=== PATIENT | male | born 1965 | race Hispanic/Latino ===

== ENCOUNTER 2021-04-15 12:16 | Inpatient (IN) | payer OTHER ==
[2021-04-15] VITALS (24 sets, daily range): BP systolic 82–129; BP diastolic 48–81
[~2021-04-15] VITALS: Ht 157.5 cm; Wt 93.4 kg
[2021-04-15] MEDS ORDERED: NICARDIPINE 25MG INJ IV ONE (12:24)
[2021-04-15] MEDS ORDERED: IOHEXOL-350 50ML VIAL IV ONE (12:24)
[2021-04-15] MEDS ORDERED: HEPARIN 10,000 UNIT/10ML (1,000 UNIT/ML) VIAL ONE ×2 (12:24→13:37)
[2021-04-15] MEDS ORDERED: NITROGLYCERIN 50MG VIAL IV ONE (12:24)
[2021-04-15] MEDS ORDERED: IOHEXOL 350 MG/ML 100ML INFUS..BTL IV ONE ×2 (12:24→13:13)
[2021-04-15] MEDS ORDERED: LIDOCAINE HCL 400MG/20ML VIAL ONE (12:25)
[2021-04-15] MEDS ORDERED: MEPERIDINE-PF 25 MG/ML SYG ONE (12:39)
[2021-04-15] MEDS ORDERED: BIVALIRUDIN 250 MG/VIAL IV ONE (12:45)
[2021-04-15] MEDS ORDERED: CLOPIDOGREL 300MG TAB ONE (12:54)
[2021-04-15] MEDS ORDERED: EPTIFIBATIDE 2 MG/ML 10 ML VIAL IVP ONE ×2 (12:54→13:01)
[2021-04-15] MEDS ORDERED: EPTIFIBATIDE 75MG/100ML BOTTLE 100 ML IV ONE (12:56)
[2021-04-15] MEDS ORDERED: ENALAPRILAT DIHYDRATE 1.25 MG/ML 2ML VIAL IVP ONE (14:18)
[2021-04-15] MEDS ORDERED: ACETAMINOPHEN WITH CODEINE 1 TAB TAB PO PRN ×2 (15:00)
[2021-04-15] MEDS ORDERED: PHARMACY COMMUNICATION MISC SCH (15:30)
[2021-04-16] VITALS (23 sets, daily range): BP systolic 94–138; BP diastolic 46–82
[2021-04-16 04:31] LABS: HEMATOCRIT 32.6 % (42-54); MEAN CORPUSCULAR HEMOGLOBIN 30.7 pg (27.0-33.0); MEAN CORPUSCULAR HGB CONC 36.8 g/dL (32.0-36.0); MEAN CORPUSCULAR VOLUME 83.4 fL (79-99); PLATELET COUNT (AUTO) 286 K/uL (130-400); RED BLOOD CELL COUNT(AUTO) 3.91 MIL/uL (4.50-6.20); RED CELL DISTRIBUTION WIDTH 12.3 % (11.0-15.5); WHITE BLOOD COUNT (AUTO) 11.1 K/uL (4.8-10.8)
[2021-04-16 04:53] LABS: CREATININE 1.1 mg/dL (0.5-1.5)
[2021-04-16 05:08] LABS: POTASSIUM 2.9 mmol/L (3.5-5.1)
[2021-04-16] MEDS: CLOPIDOGREL 75MG TAB PO SCH (08:30)
[2021-04-16] MEDS: ASPIRIN 81MG CHEW TAB PO SCH (08:30)
[2021-04-16] MEDS: KCL 20 MEQ ERTAB PO PRN ×4 (09:22→16:11)
[2021-04-16 09:29] LABS: HEMOGLOBIN A1C 8.2 % (4.0-6.0)
[2021-04-16] MEDS ORDERED: POTASSIUM CHLORIDE 20MEQ/100ML 100 ML IV PRN (09:30)
[2021-04-16] MEDS ORDERED: POTASSIUM CHLORIDE 10% ELIXIR 20 MEQ/15 ML UDCUP PO PRN (09:30)
[2021-04-16 09:38] LABS: MAGNESIUM 1.7 mg/dL (1.80-2.40); THYROID STIMULATING HORMONE 3.52 uIU/mL (0.36-3.74)
[2021-04-16] MEDS: MAGNESIUM 2GM PREMIX 50ML 50 ML IV PRN (10:19)
[2021-04-16] MEDS: INSULIN HUMULIN R 100 UNIT/ML 3ML SQ SCH ×3 (11:04→20:33)
[2021-04-16 14:54] LABS: CREATININE 1.3 mg/dL (0.5-1.5); MAGNESIUM 2.1 mg/dL (1.80-2.40); POTASSIUM 3.5 mmol/L (3.5-5.1)
[2021-04-16] MEDS ORDERED: METOPROLOL TARTRATE 25 MG TAB PO ONE (17:30)
[2021-04-16] MEDS: ATORVASTATIN 40 MG TABLET PO SCH (20:30)
[2021-04-17 03:55] LABS: CREATININE 1.1 mg/dL (0.5-1.5); MAGNESIUM 1.8 mg/dL (1.80-2.40); POTASSIUM 3.4 mmol/L (3.5-5.1)
[2021-04-17 04:00] VITALS: BP 114/77
[2021-04-17 05:50] LABS: BASOPHILS % (AUTO) 0.7 % (0.0-5.0); EOSINOPHILS % (AUTO) 3.1 % (0.0-8.0); HEMATOCRIT 32.9 % (42-54); LYMPHOCYTES % (AUTO) 27.9 % (21.0-51.0); MEAN CORPUSCULAR HEMOGLOBIN 30.6 pg (27.0-33.0); MEAN CORPUSCULAR HGB CONC 35.9 g/dL (32.0-36.0); MEAN CORPUSCULAR VOLUME 85.2 fL (79-99); MONOCYTES % (AUTO) 9.9 % (3.0-13.0); NEUTROPHILS % (AUTO) 57.9 % (40.0-77.0); PLATELET COUNT (AUTO) 268 K/uL (130-400); RED BLOOD CELL COUNT(AUTO) 3.86 MIL/uL (4.50-6.20); RED CELL DISTRIBUTION WIDTH 12.5 % (11.0-15.5); WHITE BLOOD COUNT (AUTO) 9.8 K/uL (4.8-10.8)
[2021-04-17] MEDS: INSULIN HUMULIN R 100 UNIT/ML 3ML SQ SCH ×4 (06:32→20:46)
[2021-04-17] MEDS: KCL 20 MEQ ERTAB PO PRN ×2 (06:36→08:20)
[2021-04-17 07:41] VITALS: BP 127/85
[2021-04-17] MEDS: METOPROLOL TARTRATE 25 MG TAB PO SCH ×2 (08:20→20:37)
[2021-04-17] MEDS: CLOPIDOGREL 75MG TAB PO SCH (08:20)
[2021-04-17] MEDS: MAGNESIUM 2GM PREMIX 50ML 50 ML IV PRN (08:21)
[2021-04-17] MEDS: ASPIRIN 81MG CHEW TAB PO SCH (08:21)
[2021-04-17] MEDS: LISINOPRIL 2.5 MG TABLET PO SCH (08:27)
[2021-04-17] MEDS ORDERED: FUROSEMIDE 40MG VIAL IV SCH (08:30)
[2021-04-17 11:12] VITALS: BP 97/73
[2021-04-17] MEDS: FOLIC ACID 1 MG TABLET PO SCH (11:34)
[2021-04-17] MEDS: THIAMINE HCL 100 MG TABLET PO SCH (11:34)
[2021-04-17] MEDS: KCL 20 MEQ ERTAB PO SCH (15:14)
[2021-04-17] MEDS: FUROSEMIDE 40MG VIAL IV SCH (15:14)
[2021-04-17 15:38] VITALS: BP 102/68
[2021-04-17 19:28] VITALS: BP 115/75
[2021-04-17 20:05] VITALS: BP 156/75
[2021-04-17] MEDS: ATORVASTATIN 40 MG TABLET PO SCH (20:37)
[2021-04-18] VITALS: BP 112/74
[2021-04-18 03:46] VITALS: BP 146/76
[2021-04-18 04:02] LABS: CREATININE 1.1 mg/dL (0.5-1.5); POTASSIUM 3.3 mmol/L (3.5-5.1)
[2021-04-18] MEDS: KCL 20 MEQ ERTAB PO PRN ×2 (06:33→08:54)
[2021-04-18] MEDS: INSULIN HUMULIN R 100 UNIT/ML 3ML SQ SCH ×4 (07:18→21:10)
[2021-04-18 08:00] VITALS: BP 118/81
[2021-04-18] MEDS: FOLIC ACID 1 MG TABLET PO SCH (08:56)
[2021-04-18] MEDS: LISINOPRIL 2.5 MG TABLET PO SCH (08:56)
[2021-04-18] MEDS: ASPIRIN 81MG CHEW TAB PO SCH (08:56)
[2021-04-18] MEDS: CLOPIDOGREL 75MG TAB PO SCH (08:56)
[2021-04-18] MEDS: METOPROLOL TARTRATE 25 MG TAB PO SCH ×2 (08:56→21:08)
[2021-04-18] MEDS: KCL 20 MEQ ERTAB PO SCH ×3 (09:00→15:26)
[2021-04-18] MEDS: FUROSEMIDE 40MG VIAL IV SCH ×3 (10:37→15:26)
[2021-04-18] MEDS: THIAMINE HCL 100 MG TABLET PO SCH (10:37)
[2021-04-18 12:00] VITALS: BP 133/66
[2021-04-18] MEDS ORDERED: LOSA25TA41 PO (15:06)
[2021-04-18] MEDS ORDERED: METF-444 PO (15:06)
[2021-04-18 16:00] VITALS: BP 115/74
[2021-04-18 20:15] VITALS: BP 123/73
[2021-04-18] MEDS: ATORVASTATIN 40 MG TABLET PO SCH (21:08)
[2021-04-18] MEDS: INSULIN GLARGINE 100 UNITS/ML 10 ML VIAL SQ SCH (21:09)
[2021-04-19] VITALS (7 sets, daily range): BP systolic 101–134; BP diastolic 66–80
[2021-04-19 04:06] LABS: CREATININE 1.1 mg/dL (0.5-1.5); POTASSIUM 3.6 mmol/L (3.5-5.1)
[2021-04-19] MEDS: KCL 20 MEQ ERTAB PO PRN ×2 (04:38→06:10)
[2021-04-19] MEDS: INSULIN HUMULIN R 100 UNIT/ML 3ML SQ SCH ×4 (06:11→21:16)
[2021-04-19] MEDS: LISINOPRIL 2.5 MG TABLET PO SCH (08:07)
[2021-04-19] MEDS: ASPIRIN 81MG CHEW TAB PO SCH (08:07)
[2021-04-19] MEDS: METOPROLOL TARTRATE 25 MG TAB PO SCH ×2 (08:07→21:13)
[2021-04-19] MEDS: FOLIC ACID 1 MG TABLET PO SCH (08:08)
[2021-04-19] MEDS: THIAMINE HCL 100 MG TABLET PO SCH (08:08)
[2021-04-19] MEDS: CLOPIDOGREL 75MG TAB PO SCH (08:08)
[2021-04-19] MEDS: FUROSEMIDE 40 MG TABLET PO SCH (09:05)
[2021-04-19] MEDS: KCL 20 MEQ ERTAB PO SCH (09:05)
[2021-04-19] MEDS ORDERED: FUROSEMIDE 40 MG TABLET PO SCH (16:00)
[2021-04-19] MEDS ORDERED: KCL 20 MEQ ERTAB PO SCH (16:00)
[2021-04-19] MEDS: ATORVASTATIN 40 MG TABLET PO SCH (21:13)
[2021-04-19] MEDS: INSULIN GLARGINE 100 UNITS/ML 10 ML VIAL SQ SCH (21:17)
[2021-04-20 03:48] VITALS: BP 112/78
[2021-04-20 06:26] LABS: BASOPHILS % (AUTO) 0.7 % (0.0-5.0); EOSINOPHILS % (AUTO) 4.2 % (0.0-8.0); LYMPHOCYTES % (AUTO) 27.4 % (21.0-51.0); MEAN CORPUSCULAR HEMOGLOBIN 30.1 pg (27.0-33.0); MEAN CORPUSCULAR VOLUME 85.9 fL (79-99); MONOCYTES % (AUTO) 8.5 % (3.0-13.0); NEUTROPHILS % (AUTO) 58.6 % (40.0-77.0); PLATELET COUNT (AUTO) 305 K/uL (130-400); RED BLOOD CELL COUNT(AUTO) 3.96 MIL/uL (4.50-6.20); RED CELL DISTRIBUTION WIDTH 12.5 % (11.0-15.5); WHITE BLOOD COUNT (AUTO) 9.1 K/uL (4.8-10.8)
[2021-04-20 06:32] LABS: CREATININE 1.1 mg/dL (0.5-1.5); MAGNESIUM 1.6 mg/dL (1.80-2.40); POTASSIUM 3.7 mmol/L (3.5-5.1)
[2021-04-20] MEDS: INSULIN HUMULIN R 100 UNIT/ML 3ML SQ SCH ×4 (06:32→20:37)
[2021-04-20] MEDS: KCL 20 MEQ ERTAB PO PRN (06:39)
[2021-04-20] MEDS: MAGNESIUM 2GM PREMIX 50ML 50 ML IV PRN (06:39)
[2021-04-20 07:00] VITALS: BP 128/78
[2021-04-20] MEDS: ASPIRIN 81MG CHEW TAB PO SCH (08:04)
[2021-04-20] MEDS: LISINOPRIL 2.5 MG TABLET PO SCH (08:04)
[2021-04-20] MEDS: THIAMINE HCL 100 MG TABLET PO SCH (08:04)
[2021-04-20] MEDS: FUROSEMIDE 40 MG TABLET PO SCH (08:05)
[2021-04-20] MEDS: CLOPIDOGREL 75MG TAB PO SCH (08:05)
[2021-04-20] MEDS: METOPROLOL TARTRATE 25 MG TAB PO SCH ×2 (08:05→20:36)
[2021-04-20] MEDS: KCL 20 MEQ ERTAB PO SCH (08:06)
[2021-04-20] MEDS: FOLIC ACID 1 MG TABLET PO SCH (08:06)
[2021-04-20 11:00] VITALS: BP 97/62
[2021-04-20 16:00] VITALS: BP 114/72
[2021-04-20 19:55] VITALS: BP 129/75
[2021-04-20] MEDS: ATORVASTATIN 40 MG TABLET PO SCH (20:36)
[2021-04-20] MEDS: INSULIN GLARGINE 100 UNITS/ML 10 ML VIAL SQ SCH (20:37)
[2021-04-20 23:55] VITALS: BP 109/57
[2021-04-21 04:13] VITALS: BP 118/67
[2021-04-21] MEDS: INSULIN HUMULIN R 100 UNIT/ML 3ML SQ SCH ×4 (05:27→20:55)
[2021-04-21 06:41] LABS: BASOPHILS % (AUTO) 0.8 % (0.0-5.0); EOSINOPHILS % (AUTO) 4.7 % (0.0-8.0); HEMATOCRIT 35.1 % (42-54); LYMPHOCYTES % (AUTO) 26.3 % (21.0-51.0); MEAN CORPUSCULAR HGB CONC 34.2 g/dL (32.0-36.0); MEAN CORPUSCULAR VOLUME 87.8 fL (79-99); MONOCYTES % (AUTO) 7.7 % (3.0-13.0); PLATELET COUNT (AUTO) 302 K/uL (130-400); RED CELL DISTRIBUTION WIDTH 12.3 % (11.0-15.5); WHITE BLOOD COUNT (AUTO) 7.9 K/uL (4.8-10.8)
[2021-04-21 06:50] LABS: CREATININE 1.1 mg/dL (0.5-1.5); POTASSIUM 3.8 mmol/L (3.5-5.1)
[2021-04-21 08:00] VITALS: BP 107/81
[2021-04-21] MEDS: KCL 20 MEQ ERTAB PO SCH (09:39)
[2021-04-21] MEDS: ASPIRIN 81MG CHEW TAB PO SCH (09:39)
[2021-04-21] MEDS: METOPROLOL TARTRATE 25 MG TAB PO SCH ×2 (09:39→20:42)
[2021-04-21] MEDS: FUROSEMIDE 40 MG TABLET PO SCH (09:40)
[2021-04-21] MEDS: CLOPIDOGREL 75MG TAB PO SCH (09:40)
[2021-04-21] MEDS: FOLIC ACID 1 MG TABLET PO SCH (09:40)
[2021-04-21] MEDS: LISINOPRIL 2.5 MG TABLET PO SCH (09:40)
[2021-04-21] MEDS: THIAMINE HCL 100 MG TABLET PO SCH (09:40)
[2021-04-21 11:00] VITALS: BP 111/66
[2021-04-21 16:00] VITALS: BP 116/71
[2021-04-21 19:15] VITALS: BP 115/69
[2021-04-21] MEDS: ATORVASTATIN 40 MG TABLET PO SCH (20:42)
[2021-04-21] MEDS: INSULIN GLARGINE 100 UNITS/ML 10 ML VIAL SQ SCH (20:50)
[2021-04-21 23:49] VITALS: BP 114/79
[2021-04-22 03:53] VITALS: BP 127/65
[2021-04-22] MEDS: INSULIN HUMULIN R 100 UNIT/ML 3ML SQ SCH ×3 (05:59→17:33)
[2021-04-22 06:17] LABS: BASOPHILS % (AUTO) 0.8 % (0.0-5.0); EOSINOPHILS % (AUTO) 5.3 % (0.0-8.0); HEMATOCRIT 34.1 % (42-54); LYMPHOCYTES % (AUTO) 24.2 % (21.0-51.0); MEAN CORPUSCULAR HEMOGLOBIN 29.9 pg (27.0-33.0); MEAN CORPUSCULAR HGB CONC 34.3 g/dL (32.0-36.0); MEAN CORPUSCULAR VOLUME 87.2 fL (79-99); MONOCYTES % (AUTO) 8.3 % (3.0-13.0); NEUTROPHILS % (AUTO) 60.7 % (40.0-77.0); PLATELET COUNT (AUTO) 298 K/uL (130-400); RED BLOOD CELL COUNT(AUTO) 3.91 MIL/uL (4.50-6.20); RED CELL DISTRIBUTION WIDTH 12.3 % (11.0-15.5); WHITE BLOOD COUNT (AUTO) 8.9 K/uL (4.8-10.8)
[2021-04-22 06:43] LABS: POTASSIUM 3.5 mmol/L (3.5-5.1)
[2021-04-22 08:00] VITALS: BP 116/75
[2021-04-22] MEDS: CLOPIDOGREL 75MG TAB PO SCH (09:00)
[2021-04-22 12:15] VITALS: BP 125/90
[2021-04-22] MEDS: ASPIRIN 81MG CHEW TAB PO SCH (12:44)
[2021-04-22] MEDS: LISINOPRIL 2.5 MG TABLET PO SCH (12:45)
[2021-04-22] MEDS: FOLIC ACID 1 MG TABLET PO SCH (12:45)
[2021-04-22] MEDS: METOPROLOL TARTRATE 25 MG TAB PO SCH (12:45)
[2021-04-22] MEDS: THIAMINE HCL 100 MG TABLET PO SCH (12:45)
[2021-04-22] MEDS: KCL 20 MEQ ERTAB PO SCH (12:46)
[2021-04-22] MEDS: FUROSEMIDE 40 MG TABLET PO SCH (12:49)
[2021-04-22 16:20] VITALS: BP 112/60
[2021-04-22] MEDS ORDERED: LOSA25TA41 PO (17:09)
[2021-04-22] MEDS ORDERED: CLOP75TA14 PO (17:09)
[2021-04-22] MEDS ORDERED: FURO40TA7 PO (17:09)
[2021-04-22] MEDS ORDERED: METF-445 PO (17:09)
[2021-04-22] MEDS ORDERED: ATOR40TA69 PO (17:09)
[2021-04-22] MEDS ORDERED: METO50TA9 PO (17:09)
[2021-04-22] MEDS ORDERED: ASPI-1005 PO (17:09)
[2021-04-23] MEDS ORDERED: METOPROLOL SUCCINATE 50 MG TAB.SR.24H PO SCH (09:00)
== END 2021-04-22 20:00 | disposition home or self-care (01) | DRG 246 ==
LOC: INTOOBSV 12:28 → EDHIP 12:28 → OBSVTOIN 12:28 → 2DH 16:55
PROVIDERS: ADMIT Internal Medicine; ATTEND Internal Medicine
PROC: 027135Z Dilation of Coronary Artery, Two Arteries with Two Drug-eluting Intraluminal Devices, Percutaneous Approach (ICD-10-PCS; principal; 2021-04-15)
PROC: 4A023N7 Measurement of Cardiac Sampling and Pressure, Left Heart, Percutaneous Approach (ICD-10-PCS; 2021-04-15)
PROC: B2111ZZ Fluoroscopy of Multiple Coronary Arteries using Low Osmolar Contrast (ICD-10-PCS; 2021-04-15)
PROC: B2151ZZ Fluoroscopy of Left Heart using Low Osmolar Contrast (ICD-10-PCS; 2021-04-15)
DX: I21.09 ST elevation (STEMI) myocardial infarction involving other coronary artery of anterior wall (principal); I50.43 Acute on chronic combined systolic (congestive) and diastolic (congestive) heart failure; L03.113 Cellulitis of right upper limb; E87.6 Hypokalemia; E83.42 Hypomagnesemia; I11.0 Hypertensive heart disease with heart failure; E78.5 Hyperlipidemia, unspecified; E11.9 Type 2 diabetes mellitus without complications; I25.10 Atherosclerotic heart disease of native coronary artery without angina pectoris; I25.5 Ischemic cardiomyopathy; F10.10 Alcohol abuse, uncomplicated; G24.9 Dystonia, unspecified; Z95.5 Presence of coronary angioplasty implant and graft; Z83.3 Family history of diabetes mellitus; Z82.49 Family history of ischemic heart disease and other diseases of the circulatory system
CPT/HCPCS: 36415; 71045; 80048; 80061; 82948; 83036; 83735; 83880; 84132; 84443; 85025; 85027; 85347; 93005; 93306; 93458; C1769; C1887; C1894; C9600; C9601; G0378; J0583; J1327; J1644; J1815; J1940; J2175; J3475; J3480; J3490; Q9967